=== PATIENT | female | born 1955 ===

== ENCOUNTER 2016-07-18 07:55 | Outpatient (CLI) | payer MEDICAID ==
[2016-07-18 13:14] LABS: BASOPHILS % (AUTO) 0.4 %; EOSINOPHILS # (AUTO) 0.2 10^3/uL (0.0-0.7); EOSINOPHILS % (AUTO) 2.3 %; HCT - HEMATOCRIT 41.7 % (37.0-47.0); HGB - HEMOGLOBIN 13.8 g/dL (12.0-16.0); LYMPHOCYTES % (AUTO) 35.3 %; MEAN CORPUSCULAR HEMOGLOBIN 29.8 pg (27.0-31.0); MEAN CORPUSCULAR HGB CONC 33.1 g/dL (32.0-36.0); MEAN CORPUSCULAR VOLUME 89.9 fL (81.0-99.0); MEAN PLATELET VOLUME 7.6 fL (7.9-10.8); MONOCYTES # (AUTO) 0.6 10^3/uL (0.0-1.0); MONOCYTES % (AUTO) 6.5 %; NEUTROPHILS # (AUTO) 4.7 10^3/uL (1.5-6.6); NEUTROPHILS % (AUTO) 55.5 %; RED BLOOD COUNT 4.64 10^6/uL (4.20-5.40); RED CELL DISTRIBUTION WIDTH 14.4 % (12.0-15.0); UNCORRECTED WHITE BLOOD COUNT 8.5 x10^3/uL; WHITE BLOOD COUNT 8.5 x10^3/uL (4.8-10.8)
[2016-07-18 13:57] LABS: ALBUMIN/GLOBULIN RATIO 1.3 (1.0-2.2); BILIRUBIN,TOTAL 0.4 mg/dL (0.2-1.0); BUN - BLOOD UREA NITROGEN 23 mg/dL (6-20); CALCIUM 8.8 mg/dL (8.5-10.3); CARBON DIOXIDE - CO2 22 mmol/L (21-32); CHLORIDE 108 mmol/L (101-111); CHOL/HDL RATIO 3.6 (<4.4); CHOLESTEROL 142 mg/dL; CREATININE 0.8 mg/dL (0.4-1.0); GFR - MDRD 73 (>89); GLUCOSE 108 mg/dL (70-100); HDL CHOLESTEROL 40 mg/dL; LDL/HDL RATIO 2.1 (<4.4); POTASSIUM 4.2 mmol/L (3.5-5.0); SODIUM 137 mmol/L (135-145); TOTAL PROTEIN 7.3 g/dL (6.7-8.2); TRIGLYCERIDES 102 mg/dL; VLDL CHOLESTEROL 20 mg/dL
[2016-07-18 14:01] LABS: THYROID STIMULATING HORMONE 4.69 uIU/mL (0.34-5.60)
== END 2016-07-18 07:56 | disposition home or self-care (01) ==
LOC: LAB.N 07:55
PROVIDERS: ATTEND Family Medicine
DX: F33.0 Major depressive disorder, recurrent, mild (principal); F17.210 Nicotine dependence, cigarettes, uncomplicated; E03.9 Hypothyroidism, unspecified
CPT/HCPCS: 36415; 80053; 80061; 84439; 84443; 84481; 85025

== ENCOUNTER 2016-12-27 10:01 | Emergency (ER) | payer MEDICAID ==
[2016-12-27 11:35] VITALS: BP 102/80
--- NOTE | 2016-12-27 11:47 | ED Physician Documentation ---
PD HPI URI - Stated complaint Stated Complaint: FEVER, COUGH - Chief complaint Chief Complaint: Resp - History obtained from History obtained from: Patient, Family - History of Present Illness Timing - onset: How many days ago (5) Timing duration: Days (5) Timing details: Gradual onset, Still present Associated symptoms: Fever, Chills, Sweats, Ear pain, Nasal congestion, Rhinorrhea, Sore throat, Dry cough, Dyspnea Contributing factors: No: Sick contact Improves by: Rest, Medication Worsened by: Activity Similar symptoms before: Has not had sx before Recently seen: Not recently seen - Additional information Additional information: 61-year-old female previously well who does not get sick has developed a sore throat with fever cough and congestion. She has headache as well. Review of Systems Constitutional: reports: Fever, Chills, Myalgias, Fatigue Eyes: denies: Decreased vision Ears: reports: Ear pain Nose: reports: Rhinorrhea / runny nose, Congestion Throat: reports: Sore throat Respiratory: reports: Dyspnea, Cough GI: denies: Abdominal Pain, Nausea, Vomiting : denies: Dysuria, Frequency PD PAST MEDICAL HISTORY - Past Medical History Past Medical History: Yes Cardiovascular: None Respiratory: None Endocrine/Autoimmune: HyPOthyroidism GI: None : None HEENT: None Psych: Depression, Panic attacks, Post traumatic stress disorder Musculoskeletal: None Derm: None - Past Surgical History Past Surgical History: Yes General: Cholecystectomy, Appendectomy - Present Medications Home Medications: Ambulatory Orders Medication Instructions Recorded Confirmed Venlafaxine HCl [Effexor Xr] 150 mg PO DAILY 08/05/14 12/27/16 Azithromycin [Zithromax] 250 mg PO DAILY #6 tablet 12/27/16 Benzonatate [Tessalon] 100 - 200 mg PO TID PRN #20 capsule 12/27/16 - Allergies Allergies/Adverse Reactions: Allergies Allergy/AdvReac Type Severity Reaction Status Date / Time No Known Drug Allergies Allergy Verified 12/27/16 10:12 - Social History Does the pt smoke?: Yes Smoking Status: Current every day smoker Does the pt drink ETOH?: No Does the pt have substance abuse?: No - Immunizations Immunizations are current?: Yes Immunizations: TDAP >10years/unknown PD ED PE NORMAL - Vitals Vital signs reviewed: Yes - General General: No acute distress, Well developed/nourished - HEENT HEENT: Atraumatic, PERRL, Other (There is mild inflamation to the right TM and not to the left. The pharynx is with swelling erythema and mild exudate. ) - Neck Neck: Supple, no meningeal sign - Cardiac Cardiac: RRR, No murmur - Respiratory Respiratory: No respiratory distress, Other (rhonchi to the right base is light and reproducible ) - Abdomen Abdomen: Soft, Non tender - Back Back: No CVA TTP, No spinal TTP - Derm Derm: Normal color, Warm and dry, No rash - Extremities Extremities: No deformity, No edema - Neuro Neuro: No motor deficit, No sensory deficit Eye Opening: Spontaneous Motor: Obeys Commands Verbal: Oriented GCS Score: 15 - Psych Psych: Normal mood, Normal affect Results - Vitals Vitals: Vital Signs - 24 hr 12/27/16 12/27/16 10:09 11:34 Temperature 36.2 C L 36.4 C L Heart Rate 67 64 Respiratory 16 16 Rate Blood Pressure 131/84 H 102/80 O2 Saturation 94 94 Oxygen O2 Source Room air - Labs Labs: Laboratory Tests 12/27/16 11:42 Group A Strep Rapid Negative - Rads (name of study) 2 view chest Radiology: Prelim report reviewed (Impression: No radiographic apparent acute abnormality in the chest. No significant change from prior.), EMP read indepedently (On my read I see hazy density in the right middle lung consistent with the patient's physical exam findings. ), See rad report PD MEDICAL DECISION MAKING - ED course Complexity details: reviewed results, re-evaluated patient, considered differential, d/w patient, d/w family ED course: 61 y/o female with 5 days of illness has OM on exam and rhonchi in the chest with minimal radiographic findings. She is treated in the ED with decadron and we will put her on a course of azithro. Departure - Departure Disposition: 01 Home, Self Care Clinical Impression: Pneumonia Qualifiers: Pneumonia type: due to unspecified organism Laterality: right Lung location: middle lobe of lung Qualified Code(s): J18.1 - Lobar pneumonia, unspecified organism Otitis media Qualifiers: Otitis media type: suppurative Chronicity: acute Laterality: bilateral Recurrence: not specified as recurrent Spontaneous tympanic membrane rupture: without spontaneous rupture Qualified Code(s): H66.003 - Acute suppurative otitis media without spontaneous rupture of ear drum, bilateral Condition: Stable Instructions: ED Otitis Media Acute Adult, ED Pneumonia Adult Follow-Up: Reyes Jeronimo MD [Primary Care Provider] - Prescriptions: Azithromycin [Zithromax] 250 mg PO DAILY #6 tablet Benzonatate [Tessalon] 100 - 200 mg PO TID PRN #20 capsule PRN Reason: Cough
[2016-12-27 12:00] LABS: RAPID STREP SCREEN REAGENT QC YELLOW (YELLOW)
[2016-12-27] MEDS ORDERED: DEXAMETHASONE 10 MG/ML VIAL PO STA (12:10)
[2016-12-27] MEDS ORDERED: cefTRIAXone 1 GM VIAL IM STA (12:10)
--- NOTE | 2016-12-27 12:19 | XRAY Preliminary Report ---
Exam: XR CHEST 2 VIEW PA/LAT IMPRESSION: No radiographically apparent acute abnormality in the chest. No significant change from p rior. [facility] SITE ID: [id number]
--- NOTE | 2016-12-27 12:22 | XRAY Report ---
EXAM: CHEST RADIOGRAPHY EXAM DATE: 12/27/2016 12:00 PM. CLINICAL HISTORY: Rhonchi right base. Cough. COMPARISON: 04/14/2010 (images only; no report). TECHNIQUE: 2 views. FINDINGS: Lungs/Pleura: No focal consolidation. No pneumothorax or pleural effusion. Borderline hyperinflation. Mediastinum: Heart and mediastinal contours are unremarkable. Other: None. IMPRESSION: No radiographically apparent acute abnormality in the chest. No significant change from p rior. [facility] Referring Provider Line: [phone] SITE ID: [id number]
[2016-12-27] MEDS ORDERED: DEXAMETHASONE 10 MG/ML VIAL ONE (12:24)
[2016-12-27] MEDS ORDERED: CHERRY SYRUP 10 ML UDC PO ONE (12:24)
[2016-12-27] MEDS ORDERED: cefTRIAXone 1 GM VIAL ONE (12:24)
[2016-12-27] MEDS ORDERED: LIDOCAINE 1% 2 ML VIAL ONE (12:24)
== END 2016-12-27 12:48 | disposition home or self-care (01) ==
LOC: ED 10:01
DX: J18.9 Pneumonia, unspecified organism (principal); H66.003 Acute suppurative otitis media without spontaneous rupture of ear drum, bilateral; E03.9 Hypothyroidism, unspecified; F17.200 Nicotine dependence, unspecified, uncomplicated
CPT/HCPCS: 71020; 87070; 87430; 96372; 99283; 99284; A9270